=== PATIENT | female | born 1965 | race Caucasian/White ===

== ENCOUNTER → 2017-12-07 | Day surgery (SDC) | payer OTHER ==
[~2017-12-07] VITALS: Ht 165.1 cm; Wt 79.4 kg
[~2017-12-07] MED LIST: DEXAMETHASONE6 M1 PO; HYDROCODON-ACE1 EAC2 PO; ROBAXIN500 M1 PO
--- NOTE | 2017-12-07 12:33 | Operative Report ---
Operative/Inv Procedure Report Surgery Date: 12/07/17 Name of Procedure: C5 6 anterior cervical discectomy and fusion use of SANTY CTI intravertebral biomechanical device Placement of Lex in Visio anterior plating system Use of autograft Use of allograft Microsurgical technique Use of fluoroscope Pre-Operative Diagnosis: Cervical spondylosis Post-Operative Diagnosis: Same Estimated Blood Loss: less than 50ml Surgeon/Vacuum Cleaner Mechanic: Kaci Anna MD,Aniyah Gómez Anesthesia: general endotracheal tube Operative/Procedure Note Note: After the successful administration of general endotracheal anesthesia all lines and tubes monitored anesthesia team. The patient was supine with the head gently extended and arms taped down to the sides to facilitate radiographic exposure of the spine. We plan a skin incision left anterior neck over the C5-6 disc space using the fluoroscope. The patient was prepped and draped in usual standard fashion. A #10 blade was used to incise the left anterior neck after the skin was injected with lidocaine with epinephrine. The platysma was divided with Bovie cautery. Sharp dissection was carried down medial to the carotid sheath lateral to trachea and esophagus. The deep cervical fascia was identified divided. A bayoneted spinal needle was then placed into the C5-6 disc space levels confirmed with x-ray. We then elevated the longus coli bilaterally and inserted soft retractors under the longus colli. [place] pins were placed in the body of C5 and C6 and gentle in-line distraction was performed. We did dispense #10 blade and resect the disc accommodation pituitaries and curettes. The anterior osteophytic lips were removed with a Kerrison punch and saved for morselized autograft. As we dissected deeper we brought the microscope in the field using microsurgical techniques elevated the PLL with upgoing curette resected with a Kerrison punch high-speed drill was used to drill the bone extra thin and provide generous foraminotomies. We went out laterally with the Kerrison punch ensuring that the shoulders of the nerves were thoroughly decompressed. After satisfied with the bony ligaments decompression of thecal sac was pulsatile there was no evidence of CSF leak. We then used a curette to remove any of the cartilaginous endplates and scraped down to good bone. We trialed a 7 x 17 x 14 12 as the appropriate size cage was packed with morselized autograft and he was permitted spotty. It was impacted under fluoroscopic guidance motor and sensory's were stable. We then secured a 20 mm in the physeal plate secured in place with 16 mm variable angle screws. All hardware was in excellent position confirmed under fluoroscopic guidance, motors and sensors were stable. The wound was inspected with hemostasis obtained retractors removed and the wound was closed in layers using 3-0 Vicryl for the platysma and the deep dermis and skin was closed with 4-0 subcuticular. Dry sterile dressings applied. At the end of the case all needle counts sponges and instrument count was correct. The patient was taken to recovery in stable condition.
--- NOTE | 2017-12-07 12:57 | Operative Report ---
Operative/Inv Procedure Report Surgery Date: 12/07/17 Name of Procedure: C5 6 anterior cervical discectomy and fusion use of SANTY CTI intravertebral biomechanical device Placement of Lex in Visio anterior plating system, allograft, autograft, use of the operating microscopeallograft, autograft, use of the operating microscope Pre-Operative Diagnosis: C5-6 degenerative disc disease, disc herniation, stenosisC5 60 gender disc disease, disc herniation, stenosis Post-Operative Diagnosis: Same Estimated Blood Loss: scant Surgeon/Feed Miller: Kaci SINGH,Magen Burch M.D. Anesthesia: general endotracheal tube Monitors: Neurophysiologic monitoring, Nims tube IV Fluids: Replacement with crystalloid Implants: Lex Drains: none Specimens: C5 6 disc material Complications: None Condition: Stable Operative Indication: Patient is a 52-year-old woman who presents with intractable neck and arm pain and paresthesias with the failure to respond to conference of conservative treatment. MRI of the cervical spine identified spondylosis of C5 6, kyphosis, and a disc osteophyte complex and high grade foraminal stenosis left greater than right. In light of her failure to respond to nonoperative treatment, she now presents for surgical decompression and instrument fusion. Operative/Procedure Note Note: After appropriate patient identification and surgical timeout Patient underwent the successful administration of general endotracheal anesthesia. With all lines and tubes were secured, neurophysiological monitoring leads were placed and baselines were obtained. The patient was positioned supine with the head gently extended on a donut, a bump under the shoulders, and arms taped down to the sides to facilitate radiographic exposure of the spine. We plan a 3-4cm skin incision left anterior neck over the C5-6 disc space in a preexisting neck crease using the fluoroscope. The patient was prepped and draped in usual standard fashion. The skin was infiltrated with 5cc of local anesthetic. A #10 blade was used to incise the left anterior neck. The platysma was elevated and divided with Bovie cautery. Sharp and blunt dissection was carried down medial to the carotid sheath and lateral to trachea and esophagus to the prevertebral fascia. The deep cervical fascia was identified and reflected off the anterior vertebral bodies. A bayoneted spinal needle was then placed into the C5-6 disc space and the level was confirmed with x-ray. We then elevated the longus coli bilaterally and inserted soft retractors under the longus colli. [place] pins were placed in the body of C5 and C6 and gentle in-line distraction was performed. We used a #10 blade to perform an annulotomy and resect the disc with pituitaries rongeurs and curettes. The anterior osteophytic lips were removed with a Kerrison punch and saved for morselized autograft. As we dissected deeper we brought the microscope in the field using microsurgical techniques, elevated the PLL with upgoing curette, and resected with a Kerrison punch until an excellent decompression of the dural sac and shoulder of the exiting C6 roots was accomplished. A high-speed drill was used to facilitate bilateral foraminotomies and contouring of the vertebralk endplates. After satisfied with the bony and ligamentous decompression of thecal sac was pulsatile there was no evidence of CSF leak. The endplates were then curretted and all of the cartilaginous endplate was removed at both C5 and C6 to prepare them for arthrodesis. After appropriate trials, a 7 x 17 x 14mm lordotic size cage was packed with morselized autograft and he was permitted DBM putty. It was impacted under fluoroscopic guidance into the C5/6 interspace and motor and sensory's were stable. We then selected a 20 mm titanium plate and secured it in place to C5 and C6 with 16 mm variable angle screws. All hardware was in excellent position confirmed under fluoroscopic guidance, motors and sensors were stable. The screws were finally tightened and the locking mechanism was secured. The wound was copiously irrigated. The wound was inspected with hemostasis obtained the retractors were removed and the wound was closed in layers using 3-0 Vicryl for the platysma and the deep dermis and skin was closed with 4-0 subcuticular stitch. The wound was cleaned and dried. Steristrips and a sterile dressing was applied. At the end of the case all needle counts sponges and instrument count was correct. Neurophysiologic monitoring was stable throughout the case. The patient was taken to recovery in stable conditiona and was noted to be moving all 4 extremities without difficulty. Discharge Disposition: PACU
--- NOTE | 2017-12-08 19:57 | RADIOLOGY REPORT ---
EXAMINATION: CR CERVICAL SPINE/INTRAOPERATIVE FLUOROSCOPY CLINICAL INDICATION: Anterior cervical decompression and fusion C5-C6. COMPARISON: None TECHNIQUE/FINDINGS: Fluoroscopic equipment was dedicated to the operating room for the performance of an intraoperative procedure. 2 spot films were acquired and are archived in PACS. Please refer to operative notes for procedural detail. FLUOROSCOPY TIME: 13 seconds. IMPRESSION: Administrative dictation for intraoperative fluoroscopy and image archiving in PACS. Please refer to operative notes for details.
== END ==
LOC: STS 03:32
DX: M50.322 Other cervical disc degeneration at C5-C6 level (principal); M50.222 Other cervical disc displacement at C5-C6 level; M48.02 Spinal stenosis, cervical region; R20.2 Paresthesia of skin; M79.603 Pain in arm, unspecified; G47.33 Obstructive sleep apnea (adult) (pediatric); F17.200 Nicotine dependence, unspecified, uncomplicated; G25.81 Restless legs syndrome
CPT/HCPCS: 36415; 76000; 81025; C1713; J0131; J2250; J3370; J7040